=== PATIENT | female | born 1985 | race Caucasian/White ===

== ENCOUNTER 2024-01-16 19:15 | Emergency (ER) | payer OTHER, SELFPAY ==
[2024-01-16 19:31] VITALS: BP 168/100
[2024-01-16 19:56] LABS: % Basophils 0.7 % (0-2); % Immature Granulocytes 0.6 % (0-0.5); % Lymphocytes 19.4 % (20.5-51.1); % Monocytes 5.7 % (1.7-9.3); % Neutrophils 71.6 % (42.2-75.2); Absolute Basophils 0.1 10^3/uL (0-0.2); Absolute Eosinophils 0.2 10^3/uL (0-0.7); Absolute Immature Granulocytes 0.1 10^3/uL (0-0.05); Absolute Lymphocytes 1.8 10^3/uL (1.2-3.4); Absolute Monocytes 0.5 10^3/uL (0.1-0.6); Absolute Neutrophils 6.5 10^3/uL (1.4-6.5); Hematocrit 41.2 % (37.0-47.0); Hemoglobin 13.6 g/dL (12.0-16.0); Mean Corpuscular Hgb 25.3 pg (27.0-31.0); Mean Corpuscular Volume 76.6 fL (81.0-99.0); Mean Platelet Volume 8.7 fL (7.4-10.4); Nucleated Red Blood Cells % 0 %; Platelet Count 315 10^3/uL (130-400); Red Blood Cell Count 5.38 10^6/uL (4.20-5.40); Red Cell Dist. Width 15.1 % (11.5-14.5)
[2024-01-16 20:04] LABS: ALT (SGPT) 34 U/L (0-35); AST (SGOT) 25 U/L (14-36); Albumin 4.9 g/dl (3.5-5.0); Alkaline Phosphatase 104 U/L (38-126); Blood Urea Nitrogen 12 mg/dl (7-17); Calcium 9.7 mg/dl (8.4-10.2); Carbon Dioxide 24 mmol/L (22-30); Chloride 102 mmol/L (98-107); Glucose 100 mg/dl (70-99); Lipase 192 U/L (23-300); Potassium 4.2 mmol/L (3.5-5.1); Sodium 137 mmol/L (135-145); Total Bilirubin 0.7 mg/dl (0.2-1.3); Total Protein 7.5 g/dl (6.3-8.2); eGFR > 60.00
[2024-01-16 20:07] LABS: HCG, Urine Qualitative Screen Negative; Urine Albumin Negative (Neg - Trace); Urine Bilirubin Negative (Negative); Urine Character Clear (Clear); Urine Color Yellow; Urine Glucose Negative (Negative); Urine Ketone Negative (Negative); Urine Leukocyte Negative (Negative); Urine Nitrite Negative (Negative); Urine Occult Blood 3+ (Negative); Urine Specific Gravity 1.025 (<1.030); Urine Urobilinogen Negative (Neg - 1+)
[2024-01-16 20:27] LABS: Urine Mucus Moderate
[2024-01-16 20:28] LABS: Urine Bacteria Moderate (Negative); Urine White Cell 0-2 /HPF (0-5)
--- NOTE | 2024-01-16 20:53 | ED.GENMED ---
History of Present Illness
General
Chief Complaint: Abdominal Symptoms
Source: patient and spouse
Exam Limitations: none
Time Seen by Provider: 01/16/24 20:25
History of Present Illness
History of Present Illness:
This a 38-year-old female presents with lower abdominal pelvic pain that started on Saturday. She states the pain now is in the lower belly and radiates toward the back. She also reports that she has pain in around her rectum and vagina and makes
it difficult to sit. Patient also reports she has pain with defecation and urination. She denies dysuria or urinary frequency but just pain in the lower ab. she has never had this before. Today had a temperature of 100 but otherwise no fevers.
No nausea or vomiting. No abnormal vaginal discharge or bleeding. Last period was a few weeks ago
Past History
Past History
ED Past Medical History: Hypothyroidism (Hypothyroidism) and Other (Migraine headaches)
ED Past Surgical History: Cholecystectomy, (x2), Gynecological (D and E for incomplete miscarriage at 6 weeks January 2021) and Tonsilectomy
Social History
Tobacco: Non-smoker
Alcohol: None
Personal:
Living: with family
Employment: Not employed
Family History
Family History: Other (Noncontributory)
Phy Exam
Physical Exam
Physical Exam:
CONSTITUTIONAL Patient alert and oriented to person, place and time. Well-appearing. Obese. Vital signs reviewed.
HEAD atraumatic, normocephalic.
EYES eyelids normal to inspection, Extraocular muscles intact, Conjunctiva normal, Sclera normal.
NECK normal range of motion, Trachea midline, no jugular venous distention.
RESPIRATORY CHEST No respiratory distress noted, Chest expansion equal, Bilateral breath sounds clear.
CARDIOVASCULAR regular rate and rhythm, Heart sounds normal.
ABDOMEN moderate tenderness throughout the lower abdomen from below the umbilicus. She does have a hernia that is at the umbilicus. She states this is stable and does not hurt. No evidence of incarceration
BACK normal inspection, no obvious deformities
UPPER EXTREMITY range of motion normal, Motor strength normal, no cyanosis, no edema.
LOWER EXTREMITY range of motion normal, Motor strength normal, no cyanosis, no edema.
NEURO Speech normal, No focal motor deficits, [place] coma scale 15, Memory normal, Cranial Nerves intact to screening exam.
SKIN skin warm, dry, and normal in color.
PSYCHIATRIC patient oriented to person place and time, Normal affect.
Course
Orders/Labs/Results
Orders:
Orders
01/16/24 19:34
Test Result ONCE
01/16/24 19:42
Complete Blood Count/With Diff Urgent
Comprehensive Metabolic Panel Urgent
Lipase Urgent
01/16/24 19:45
HCG, Urine Qualitative Screen Urgent
Date Specimen was Collected: 01/16/24
Time Specimen was Collected: 19:34
Urinalysis Reflex To Culture Urgent
Date Specimen was Collected: 01/16/24
Time Specimen was Collected: 19:34
Urine Microscopic Reflex Cult Urgent
Urine Culture Urgent
MINA Source: U
Specimen Description:
Date Specimen was Collected: 01/16/24
Time Specimen was Collected: 19:34
01/16/24 20:47
CT Abd/Pel (IV only)-DH only Urgent
Comment:
Reason For Exam: lower abd pain
Ketorolac [Toradol] 30 mg IV NOW STA
01/16/24 22:16
HYDROmorphone [Dilaudid] 0.5 mg .ROUTE .STK-MED ONE
01/16/24 22:18
0.9% Sodium Chloride 1000 ml [Nss] 1,000 ml IV BOLUS
HYDROmorphone [Dilaudid] 0.5 mg IV NOW STA
01/16/24 23:40
HYDROmorphone [Dilaudid] 0.5 mg IV NOW STA
01/16/24 23:45
Ampicillin/Sulbactam 3 G [Unasyn] 3 gm 0.9% Sodium Chloride 100 ml [Nss] 100 ml IV NOW
Abnormal Lab Results
01/16/24 01/16/24
19:42 19:45
MCV 76.6 L fL
(81.0-99.0)
MCH 25.3 L pg
(27.0-31.0)
RDW 15.1 H %
(11.5-14.5)
Abs Immat Gran (auto) 0.1 H 10^3/uL
(0-0.05)
Immature Gran % 0.6 H %
(0-0.5)
Lymphocytes % 19.4 L %
(20.5-51.1)
Glucose 100 H mg/dl
(70-99)
Ur Occult Blood Reflex 3+ A
(Negative)
Urine RBC 3-6 A /HPF
(0-2)
Urine Bacteria (Reflex) Moderate A
(Negative)
01/16/24 19:42
01/16/24 19:42
Vital Signs
Initial and Last Documented VS:
Initial Vital Signs
Temp Pulse Resp BP Pulse Ox
97.9 F 77 19 168/100 97
01/16/24 19:31 01/16/24 19:31 01/16/24 19:31 01/16/24 19:31 01/16/24 19:31
Last Documented Vital Signs
Temp Pulse Resp BP Pulse Ox
98.4 F 82 22 121/78 99
01/16/24 23:42 01/16/24 23:42 01/16/24 23:42 01/16/24 23:42 01/16/24 23:42
MDM/Problems Addressed
MDM/Problems Addressed:
Chronic umbilical hernia, obesity, acute abdominal pain
*Pulse Oximetry
Patient hypoxic: no
*Critical Care Note
Total Time (30-74mins, 75-104mins- exclusive of procedures): Not Applicable
ED Attending Note
-
Portions of this chart may have been created with voice recognition software.� Occasional wrong word or��sound alike� substitutions may have occurred due to the inherent limitations of voice recognition software.
Discharge Plan
Departure
Patient Disposition: Home (Routine Discharge)
Date of Disposition: 01/17/24
Time of Disposition: 01:07
Patient with high blood pressure during this ER visit?: No
Discharge Problem:
acute sigmoid diverticulitis
Instructions: Diverticulitis (DC)
Prescriptions:
New
amoxicillin-pot clavulanate 875-125 mg tablet
1 tab PO Q12H Qty: 20 0RF
No Action
levothyroxine 75 MCG tablet
112 mcg PO DAILY
acetaminophen 325 mg Tablet
650 mg PO Q4HPRN PRN (Reason: mild pain) Qty: 0 0RF
oxycodone-acetaminophen 5-325 mg Tablet
1 tab PO Q4HPRN PRN (Reason: moderate pain) Qty: 0 0RF
ibuprofen 600 mg Tablet
600 mg PO Q6HPRN PRN (Reason: cramps) Qty: 0 0RF
Referrals:
Janie Mejía MD [Family Provider] -
Activity Restrictions/Additional Instructions:
Return immediately for worsening pain, vomiting, fevers or any other concerns. Please see your doctor in the next 48 hours for follow-up and reevaluation.
Interventions
Interventions:
*Risk Screen - Suicide Last Done: 01/16/24 19:31
*General Assessment Last Done: 01/16/24 19:31
*Neglect/Abuse Screening Last Done: 01/16/24 19:31
ED- Fall Risk Assessment Last Done: 01/16/24 22:08
*ED COVID-19 Vaccine History Last Done: 01/16/24 19:31
UJ-Wbvbop-Gyuuydcxmg Assessment Last Done: 01/16/24 22:05
Discharge Date and Time
Print Language: ICELANDIC
[2024-01-16] MEDS: TORADOL 30 MG IV (21:03)
[2024-01-16 21:06] VITALS: BMI 68.0
[2024-01-16 21:07] VITALS: BP 120/60
[2024-01-16 22:11] VITALS: BP 103/56
[2024-01-16 22:17] VITALS: BP 109/57
[2024-01-16] MEDS: NSS 1000 IV (22:20)
[2024-01-16] MEDS: DILAUDID 0.5 MG IV ×2 (22:21→23:46)
[2024-01-16 23:39] VITALS: BP 121/78
[2024-01-16 23:42] VITALS: BP 121/78
[2024-01-17] MEDS: UNASYN IV
[2024-01-17 01:16] VITALS: BP 118/67
[2024-01-17 01:23] VITALS: BP 118/67
== END 2024-01-17 01:23 | disposition home or self-care (01) ==
LOC: EMR 19:15
PROVIDERS: EMERGENCY PHYSICIAN Emergency Medicine; FAMILY PHYSICIAN Family Medicine
DX: K57.32 Diverticulitis of large intestine without perforation or abscess without bleeding (principal); E03.9 Hypothyroidism, unspecified; E66.9 Obesity, unspecified; Z90.49 Acquired absence of other specified parts of digestive tract
CPT/HCPCS: 99284; 96365; 96375; 96376; 96361; 74177; 80053; 81003; 81015; 81025; 83690; 85025; 87086; Q9967

== ENCOUNTER 2024-09-10 19:21 | Emergency (ER) | payer OTHER, SELFPAY ==
[2024-09-10 19:26] VITALS: BP 138/94
[2024-09-10 19:51] LABS: % Basophils 0.3 % (0-2); % Eosinophils 0.1 % (0-6); % Immature Granulocytes 0.7 % (0-0.5); % Lymphocytes 14.1 % (20.5-51.1); % Monocytes 1.6 % (1.7-9.3); % Neutrophils 83.2 % (42.2-75.2); Absolute Immature Granulocytes 0.1 10^3/uL (0-0.05); Absolute Lymphocytes 1.5 10^3/uL (1.2-3.4); Absolute Monocytes 0.2 10^3/uL (0.1-0.6); Absolute Neutrophils 8.8 10^3/uL (1.4-6.5); Hematocrit 41.7 % (37.0-47.0); Hemoglobin 13.5 g/dL (12.0-16.0); Mean Corp Hgb Conc. 32.4 g/dL (33.0-37.0); Mean Corpuscular Hgb 24.6 pg (27.0-31.0); Mean Platelet Volume 8.2 fL (7.4-10.4); Nucleated Red Blood Cells % 0 %; Platelet Count 387 10^3/uL (130-400); Red Blood Cell Count 5.49 10^6/uL (4.20-5.40); Red Cell Dist. Width 14.6 % (11.5-14.5); White Blood Cell Count 10.6 10^3/uL (4.8-10.8)
[2024-09-10 19:59] LABS: HCG, Serum Qualitative Screen Negative
[2024-09-10 20:02] LABS: ALT (SGPT) 44 U/L (0-35); AST (SGOT) 29 U/L (14-36); Albumin 4.8 g/dl (3.5-5.0); Alkaline Phosphatase 96 U/L (38-126); Blood Urea Nitrogen 11 mg/dl (7-17); Calcium 9.8 mg/dl (8.4-10.2); Carbon Dioxide 22 mmol/L (22-30); Chloride 103 mmol/L (98-107); Glucose 121 mg/dl (70-99); Potassium 4.2 mmol/L (3.5-5.1); Sodium 137 mmol/L (135-145); Total Bilirubin 0.9 mg/dl (0.2-1.3); Total Protein 7.9 g/dl (6.3-8.2); eGFR > 60.00
[2024-09-10 23:50] VITALS: BMI 66.7
[2024-09-11] MEDS: NSS 1000 IV (00:19)
[2024-09-11] MEDS: TYLENOL 1000 MG PO (00:20)
[2024-09-11] MEDS: REGLAN 10 MG IV (00:21)
[2024-09-11] MEDS: BENADRYL 25 MG IV (00:21)
[2024-09-11 00:32] VITALS: BP 112/72
[2024-09-11 01:00] VITALS: BP 108/54
[2024-09-11 01:01] LABS: COVID-19 Antigen Negative (Negative)
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
[2024-09-11] MEDS: TORADOL 15 MG IV (02:34)
[2024-09-11 03:34] VITALS: BP 116/60
[2024-09-11 04:00] VITALS: BP 116/71
== END 2024-09-11 04:05 | disposition home or self-care (01) ==
LOC: EMR 19:21
PROVIDERS: Emergency Medicine; Physician Assistant; EMERGENCY PHYSICIAN Student in an Organized Health Care Education/Training Program; FAMILY PHYSICIAN Family Medicine
DX: R51.9 Headache, unspecified (principal); E03.9 Hypothyroidism, unspecified; Z90.49 Acquired absence of other specified parts of digestive tract
CPT/HCPCS: 99284; 96374; 96375; 96361; 70450; 70496; 80053; 84703; 85025; 87502; 87811; Q9967